=== PATIENT | female | born 1950 ===

== ENCOUNTER 2017-03-20 10:08 | Inpatient (IN) | payer MEDICARE, MEDICAID ==
[2017-03-20 10:19] VITALS: BMI 32.3
[2017-03-20] MEDS ORDERED: Sodium Chloride 0.9% 500 ML IV STA (11:05)
--- NOTE | 2017-03-20 11:21 | RAD ---
HISTORY: pain COMPARISON: No prior. FINDINGS: LUNGS: No active pulmonary disease. Minimal scarring is seen in the left mid lung field. Mild interstitial changes are noted, although a portion of this may be related to the overlying soft tissue and technique. Aorta is normal in size. PLEURA: No significant pleural effusion identified, no pneumothorax apparent. CARDIOVASCULAR: Normal. Heart is unchanged in size. OSSEOUS STRUCTURES: No significant abnormalities. VISUALIZED UPPER ABDOMEN: Normal. OTHER FINDINGS: None. IMPRESSION: No new focal alveolar infiltrate. No CHF.
--- NOTE | 2017-03-20 11:42 | ED PDOC ---
Syncope/Near Syncope/Dizziness Time Seen by Provider: 03/20/17 10:33 Chief Complaint (Nursing): Dizziness/Lightheaded Chief Complaint (Provider): Dizziness History Per: Patient History/Exam Limitations: no limitations Onset/Duration Of Symptoms: Hrs Current Symptoms Are (Timing): Still Present Additional Complaint(s): 66 year old male with a past medical history of hypertension, diabetes and asthma presents to the ED for dizziness which began this morning. The patient states she feels as though the room is spinning. She states that she was asleep and when she woke up she felt dizzy. Patient does note some chest pain, headache and nausea. Denies vomiting, diarrhea. Headache is mild, not worst in his life. No numbness, tingles, neck pain. No fever, cough. PMD: Kerry Max Past Medical History Reviewed: Historical Data, Nursing Documentation, Vital Signs Vital Signs: Last Vital Signs Temp 96.8 F L 03/20/17 10:20 Pulse 70 03/20/17 10:20 Resp 16 03/20/17 10:20 BP 131/62 03/20/17 10:20 Pulse Ox 98 03/20/17 10:41 - Medical History PMH: Asthma, Diabetes, HTN, Hypercholesterolemia - Surgical History Surgical History: Cholecystectomy, Tonsillectomy - Family History Family History: States: Unknown Family Hx - Living Arrangements Living Arrangements: With Family - Social History Current smoker - smoking cessation education provided: No Ex-Smoker (has not smoked in the last 12 months): No Alcohol: None Drugs: Denies - Home Medications Home Medications: Ambulatory Orders Medication Instructions Recorded Nitrofurantoin Macrocrystals 100 mg PO BID #14 cap 12/25/14 [Macrobid] - Allergies Allergies/Adverse Reactions: Allergies Allergy/AdvReac Type Severity Reaction Status Date / Time No Known Allergies Allergy Verified 12/24/14 19:12 Review of Systems ROS Statement: Except As Marked, All Systems Reviewed And Found Negative Cardiovascular: Positive for: Chest Pain Gastrointestinal: Negative for: Vomiting, Diarrhea Neurological: Positive for: Headache, Dizziness Physical Exam - Reviewed Nursing Documentation Reviewed: Yes Vital Signs Reviewed: Yes - Physical Exam Appears: Positive for: Non-toxic, No Acute Distress Head Exam: Positive for: ATRAUMATIC, NORMAL INSPECTION, NORMOCEPHALIC Skin: Positive for: Normal Color, Warm, Dry. Negative for: Rash Eye Exam: Positive for: Normal appearance, EOMI, PERRL. Negative for: Nystagmus ENT: Positive for: Normal ENT Inspection. Negative for: Nasal Congestion, Tonsillar Exudate, Tonsillar Swelling Neck: Positive for: Normal, Painless ROM, Supple Cardiovascular/Chest: Positive for: Regular Rate, Rhythm, Chest Non Tender. Negative for: Tachycardia Respiratory: Positive for: Normal Breath Sounds. Negative for: Wheezing, Respiratory Distress Gastrointestinal/Abdominal: Positive for: Normal Exam, Bowel Sounds, Soft. Negative for: Tenderness, Guarding, Rebound Back: Positive for: Normal Inspection. Negative for: L CVA Tenderness, R CVA Tenderness Extremity: Positive for: Normal ROM. Negative for: Tenderness, Deformity, Swelling Neurologic/Psych: Positive for: Alert, Oriented. Negative for: Gait - Laboratory Results Result Diagrams: 03/20/17 11:10 03/20/17 11:10 Interpretation Of Abn Labs: 12.6 wbc and glucose 225. - ECG ECG: Positive for: Interpreted By Me, Viewed By Me ECG Rhythm: Positive for: Normal QRS, Normal ST Segment, Sinus Rhythm O2 Sat by Pulse Oximetry: 98 (RA) Pulse Ox Interpretation: Normal - Radiology X-Ray: Read By Radiologist X-Ray Interpretation: No Acute Disease - CT Scan/US ct Other Rad Studies (CT/US): Read By Radiologist, Radiology Report Reviewed Other Rad Interpretation: no acute - Progress ED Course And Treament: 1553: Stable. Feels better, no pain. Will need admit for eval of chest pain and dizziness. 1358: Stable. Spoke with Dr. Sen. Will admit tele and gives further orders when pt. reaches floor. AAOx3. Medical Decision Making Medical Decision Makin Initial Impression 66 y/o female presenting with dizziness Initial Plan: * CT head w/o Contrast * EKG * CMP * Troponin * CBC * Partial Thromboplastin * Prothrombin Time * CXR * Antivert 25mg PO * NS 500ml IV 100mls/hr * Reevaluation Documented by Aleja Padilla acting as a scribe for Ricky Reynolds MD. All medical record entries made by the Scribe were at my direction and personally dictated by me. I have reviewed the chart and agree that the record accurately reflects my personal performance of the history, physical exam, medical decision making, and the department course for this patient. I have also personally directed, reviewed, and agree with the discharge instructions and disposition. Disposition - Clinical Impression Clinical Impression: Dizziness, Chest pain, Hyperglycemia - Patient ED Disposition Is Patient to be Admitted: Yes Counseled Patient/Family Regarding: Studies Performed, Diagnosis - Disposition Disposition Time: 13:00 Condition: FAIR - Pt Status Changed To: Hospital Disposition Of: Observation - POA Present On Arrival: Poor Glycemic Control Core Measure Indicators: Chest Pain
[2017-03-20 12:20] LABS: BASO # 0.1 K/uL (0.0-0.2); BASO % 0.5 % (0.0-2.0); EOS # 0.2 K/uL (0.0-0.7); EOS % 1.6 % (0.0-4.0); HEMOGLOBIN 14.2 g/dL (12.0-16.0); LYMPH # 3.3 K/uL (1.0-4.3); LYMPH % 25.9 % (20.0-40.0); MEAN CELL VOLUME 91.4 fl (81.0-99.0); MEAN CORPUSCULAR HEMOGLOBIN 28.9 pg (27.0-31.0); MEAN CORPUSCULAR HGB CONC 31.6 g/dL (33.0-37.0); MEAN PLATELET VOLUME 11.3 fl (7.2-11.7); MONO # 0.6 K/uL (0.0-0.8); MONO % 4.8 % (0.0-10.0); NEUT # 8.5 K/uL (1.8-7.0); NEUT % 67.2 % (50.0-75.0); NRBC % 0.1 % (0.0-0.0); RBC 4.9 Mil/uL (3.80-5.20); RED CELL DISTRIBUTION WIDTH 13.9 % (11.5-14.5); WHITE BLOOD COUNT 12.6 K/uL (4.8-10.8)
[2017-03-20 12:28] LABS: ALBUMIN 4.6 g/dL (3.5-5.0); ALT/SGPT 34 U/L (9-52); AST/SGOT 24 U/L (14-36); BLOOD UREA NITROGEN 16 mg/dl (7-17); CALCIUM 9.9 mg/dL (8.4-10.2); GFR AFRICAN-AMERICAN > 60; GFR NON-AFRICAN AMERICAN > 60
[2017-03-20 12:37] LABS: PROTHROMBIN TIME 10.9 Seconds (9.8-13.1)
[2017-03-20 12:45] LABS: ALB/GLOB RATIO 1.2 (1.0-2.1)
--- NOTE | 2017-03-20 12:50 | CT ---
PROCEDURE: CT HEAD WITHOUT CONTRAST. HISTORY: headache COMPARISON: None available. TECHNIQUE: Axial computed tomography images were obtained through the head/brain without intravenous contrast. Radiation dose: Total exam DLP = 1360 mGy-cm. This CT exam was performed using one or more of the following dose reduction techniques: Automated exposure control, adjustment of the mA and/or kV according to patient size, and/or use of iterative reconstruction technique. FINDINGS: HEMORRHAGE: No intracranial hemorrhage. BRAIN: No mass effect or edema. No significant cerebral cortical atrophy or cortical effacement. There may be some very minimal small vessel changes noted in the white matter tracts. There is calcific atherosclerotic change of the distal intracranial internal carotid arteries. Retro-orbital regions are unremarkable. No tonsillar ectopia is appreciated. Pituitary gland is normal in size. VENTRICLES: Unremarkable. No hydrocephalus. CALVARIUM: Unremarkable. PARANASAL SINUSES: Unremarkable as visualized. No significant inflammatory changes. MASTOID AIR CELLS: Unremarkable as visualized. No inflammatory changes. OTHER FINDINGS: None. IMPRESSION: No evidence of recent infarct or intracranial hemorrhage. Minor age related changes.
--- NOTE | 2017-03-20 17:28 | CP.PCM.CON ---
History of Present Illness - History of Present Illness History of Present Illness: Mrs. Colin is a 66-year-old woman with a past medical history of DM, HTN, HLD, and previous encephalitis (1992, was in ICU for 2 weeks), who states that she developed a feeling of spinning along with nausea when she attempted to stand earlier this morning. She presented to the ED. CT scan of the head did not show any acute findings. She was given Antivert, and now feels like she is back to normal. Review of Systems - Review of Systems All systems: reviewed and no additional remarkable complaints except Past Patient History - Infectious Disease Hx of Infectious Diseases: None - Past Medical History & Family History Past Medical History?: Yes - Past Social History Smoking Status: Never Smoked - CARDIAC Hx Hypercholesterolemia: Yes Hx Hypertension: Yes - PULMONARY Hx Asthma: Yes - NEUROLOGICAL Hx Neurological Disorder: No - HEENT Hx HEENT Problems: No - RENAL Hx Chronic Kidney Disease: No - ENDOCRINE/METABOLIC Hx Diabetes Mellitus Type 2: Yes - HEMATOLOGICAL/ONCOLOGICAL Hx Blood Disorders: No - INTEGUMENTARY Hx Dermatological Problems: No - MUSCULOSKELETAL/RHEUMATOLOGICAL Hx Musculoskeletal Disorders: No Hx Falls: No - GASTROINTESTINAL Hx Gastrointestinal Disorders: No - GENITOURINARY/GYNECOLOGICAL Hx Genitourinary Disorders: No - PSYCHIATRIC Hx Psychophysiologic Disorder: No Hx Substance Use: No - SURGICAL HISTORY Hx Cholecystectomy: Yes Hx Tonsillectomy: Yes - ANESTHESIA Hx Anesthesia: Yes Hx Anesthesia Reactions: No Hx Malignant Hyperthermia: No Has any member of the family had a problem w/ anesthesia?: No Meds Allergies/Adverse Reactions: Allergies Allergy/AdvReac Type Severity Reaction Status Date / Time No Known Allergies Allergy Verified 12/24/14 19:12 Physical Exam - Constitutional Appears: Well - Head Exam Head Exam: ATRAUMATIC, NORMAL INSPECTION, NORMOCEPHALIC - Eye Exam Eye Exam: EOMI, Normal appearance, PERRL - ENT Exam ENT Exam: Mucous Membranes Moist, Normal Exam - Neck Exam Neck exam: Positive for: Normal Inspection - Respiratory Exam Respiratory Exam: Clear to Auscultation Bilateral, NORMAL BREATHING PATTERN - Cardiovascular Exam Cardiovascular Exam: REGULAR RHYTHM - GI/Abdominal Exam GI & Abdominal Exam: Normal Bowel Sounds, Soft. absent: Tenderness - Rectal Exam Rectal Exam: Deferred - Extremities Exam Extremities exam: Positive for: normal inspection - Back Exam Back exam: NORMAL INSPECTION - Neurological Exam Neurological exam: Alert, CN II-XII Intact, Normal Gait, Oriented x3, Reflexes Normal Additional comments: No nystagmus noted on lateral gaze or in the vertical plane. - Psychiatric Exam Psychiatric exam: Normal Affect, Normal Mood Results - Vital Signs Recent Vital Signs: Last Vital Signs Temp 98.5 F 03/20/17 16:54 Pulse 76 03/20/17 16:54 Resp 18 03/20/17 17:06 BP 122/70 03/20/17 16:54 Pulse Ox 98 03/20/17 16:54 - Labs Result Diagrams: 03/20/17 11:10 03/20/17 11:10 Labs: Laboratory Results - last 24 hr 03/20/17 03/20/17 03/20/17 10:40 11:10 11:10 WBC 12.6 H RBC 4.90 Hgb 14.2 Hct 44.7 MCV 91.4 MCH 28.9 MCHC 31.6 L RDW 13.9 Plt Count 176 MPV 11.3 Neut % (Auto) 67.2 Lymph % (Auto) 25.9 [place] % (Auto) 4.8 Eos % (Auto) 1.6 Baso % (Auto) 0.5 Neut # 8.5 H Lymph # 3.3 [place] # 0.6 Eos # 0.2 Baso # 0.1 PT INR APTT Sodium 143 Potassium 4.4 Chloride 105 Carbon Dioxide 25 Anion Gap 17 BUN 16 Creatinine 0.7 Est GFR ( Amer) > 60 Est GFR (Non-Af Amer) > 60 POC Glucose (mg/dL) 209 H Random Glucose 225 H Calcium 9.9 Total Bilirubin 0.4 AST 24 ALT 34 Alkaline Phosphatase 123 Troponin I < 0.0120 Total Protein 8.4 H Albumin 4.6 Globulin 3.8 Albumin/Globulin Ratio 1.2 03/20/17 03/20/17 11:10 16:17 WBC RBC Hgb Hct MCV MCH MCHC RDW Plt Count MPV Neut % (Auto) Lymph % (Auto) [place] % (Auto) Eos % (Auto) Baso % (Auto) Neut # Lymph # [place] # Eos # Baso # PT 10.9 INR 1.0 APTT 29.0 Sodium Potassium Chloride Carbon Dioxide Anion Gap BUN Creatinine Est GFR ( Amer) Est GFR (Non-Af Amer) POC Glucose (mg/dL) 123 H Random Glucose Calcium Total Bilirubin AST ALT Alkaline Phosphatase Troponin I Total Protein Albumin Globulin Albumin/Globulin Ratio Assessment & Plan (1) Vertigo Assessment and Plan: Considering the patient's history, it may be related to either benign positional vertigo, or could be due to vertebrobasilar insufficiency. Currently , she is back to baseline after Antivert and fluids. However, I recommend the followin. Telemetry 2. Echocardiogram with bubble study 3. CTA of the head/neck 4. Continue antiplatelet therapy and statin. 5. Fluids with NS at 100 mL/hr 6. PT/OT eval Thank you. Status: Acute Priority: High
[2017-03-20] MEDS ORDERED: INSULIN LISPRO 10 UNIT SQ SCH (20:45)
[2017-03-20] MEDS ORDERED: INSULIN LISPRO 30 UNIT SQ SCH (20:45)
[2017-03-20] MEDS: Insulin Detemir 100 Units/ml Inj SC SCH (23:43)
[2017-03-20] MEDS: Insulin Regular 100 units/ml SC SCH (23:48)
--- NOTE | 2017-03-21 05:48 | CON ---
DATE: CARDIOLOGY CONSULTATION REASON FOR CONSULTATION: Dizziness. HISTORY OF PRESENT ILLNESS: The history obtained by training technician. The patient is 66-year-old, morbidly obese, female, who has a history of hypertension, hyperlipidemia, diabetes mellitus and was told that she has tachycardia by her binder coverstitch. The patient does not recall the binder coverstitch's name; however, she was not given any medication for this and she states she underwent cardiac catheterization some 3 years ago and it was normal. The patient did experience nausea in this morning, but denies any vomiting. The patient denies any syncope or fall. The patient does use a walker and goes out with the guidance of one of her family members. The patient does experience palpitation and dizziness while she is in bed. At this time, the patient denies any retrosternal chest pain or shortness of breath. She does report bilateral leg swelling. PAST MEDICAL HISTORY: Hypertension, diabetes mellitus, hyperlipidemia, tachycardia. The patient denies any history of DVT. HOME MEDICATIONS: Macrobid 100 mg twice a day, Protonix 20 mg one a day, Neurontin 100 mg once a day, amlodipine 5 mg once a day, Lopressor 50 mg twice a day, Humalog insulin and Nitrostat p.r.n. REVIEW OF SYSTEMS: The patient experienced nausea in this morning, no vomiting, no retrosternal chest pain, no syncope, no fever or chills, no productive cough. PHYSICAL EXAMINATION: GENERAL: The patient is an elderly female, who does not appears to be in any distress. VITAL SIGNS: Blood pressure 122/70, heart rate 76, temperature 98.5, respirations 20. HEENT: Normocephalic. NECK: No JVD. CHEST: Clear. HEART: S1 and S2 regular. ABDOMEN: Soft. EXTREMITIES: Trace to 1+ right leg edema. No calf tenderness. EKG: Reveals sinus rhythm at rate 71. Head CT scan without contrast, no acute intracranial abnormality. Chest x-ray normal cardiac size with prominent bronchovascular markings. LABORATORY DATA: Hemoglobin and hematocrit 14.1 and 44.7, white count 12.6, platelet count 176,000. Today's SMA-7 is within normal limits except for glucose 525. One set troponin is negative. PT, PTT and INR are within normal limits. ASSESSMENT: 1. Dizziness and palpitation rule out paroxysmal atrial fibrillation or paroxysmal supraventricular tachycardia. 2. Hypertension. 3. Diabetes mellitus. 4. Hyperlipidemia. 5. Rule out transient ischemic attach. RECOMMENDATION: Resume the patient's home medications include Lopressor 50 mg twice a day and is continue aspirin 81 mg once a day. Continue telemetry monitoring. I would request an echocardiogram and obtain TSH level and start prophylactic subcutaneous Lovenox at 40 mg daily. Salvador Agee MD
[2017-03-21] MEDS: Insulin Regular 100 units/ml SC SCH ×4 (06:42→22:06)
[2017-03-21] MEDS: Pantoprazole 40 mg EC Tab PO SCH (08:30)
[2017-03-21] MEDS: Enoxaparin 40 mg Syringe SC SCH (08:31)
[2017-03-21] MEDS: Insulin Lispro (humaLOG) 100 Units/ml Inj SC SCH ×3 (08:41→16:25)
--- NOTE | 2017-03-21 11:54 | CARD ---
APPROVED REPORT EKG Measurement Heart [id number] <Conclusion> Normal sinus rhythm Normal ECG
[2017-03-21] MEDS ORDERED: Iodixanol 320 MG/ML 100 ML BOTTLE IV ONE (13:38)
[2017-03-21] MEDS ORDERED: Sodium Chloride 0.9% 50 ML IV ONE (13:39)
--- NOTE | 2017-03-21 14:48 | HP ---
CHIEF COMPLAINT: Dizziness. HISTORY OF PRESENT ILLNESS: This is a 66-year-old female, known case of diabetes, hypertension, elevated cholesterol, bronchial asthma, who was having dizziness and lightheadedness. The patient was brought to the emergency room and was admitted for further management. REVIEW OF SYSTEMS: Positive for lightheadedness, dizziness, and weakness. Review of systems otherwise is negative for headache, syncope, loss of consciousness, chest pain, shortness of breath, nausea, vomiting, diarrhea, constipation, anemia, joint or extremity pain. Review of systems of all other organ system is unremarkable. PAST MEDICAL HISTORY: Significant for asthma, diabetes, hypertension, and elevated cholesterol. PAST SURGICAL HISTORY: Remarkable for cholecystectomy, tonsillectomy. PERSONAL HISTORY: The patient is currently nonsmoker, nondrinker. No substance abuse. MEDICATIONS: The patient is on multiple medications, which is as per reconciliation sheet, which was reviewed and ordered. ALLERGIES: THE PATIENT IS NOT ALLERGIC TO ANY MEDICATION. FAMILY HISTORY: Noncontributory. PHYSICAL EXAMINATION: GENERAL: Well-built, well-nourished, overweight 66-year-old female, in no acute distress. VITAL SIGNS: Temperature 97.6, pulse 63, respirations 18, blood pressure 113/62. HEENT: Pupils reacting to light. HEART: S1 and S2, normal and regular. LUNGS: Good bilateral air exchange. ABDOMEN: Soft, nontender. EXTREMITIES: No edema. No calf swelling. No tenderness. No acute ischemia. CENTRAL NERVOUS SYSTEM: Essentially unchanged. There is no sign of any acute gross focal motor or sensory neurological deficits. The patient also does not have any orthostatic changes. DIAGNOSTIC DATA: Available diagnostic data reviewed. Accu-Cheks remains elevated. WBC 12.6, hemoglobin 14.2, hematocrit 44.7, platelets 176. Sodium 143, potassium 4.4, chloride 105, bicarb 25, BUN 16, creatinine 0.7. SMA-12 is unremarkable. EKG does not reveal acute ST-T changes. CAT scan is unremarkable. Chest x-ray is clear. ADMITTING IMPRESSION: Near-syncope, dizziness, type 2 diabetes with hyperglycemia, hypertension, elevated cholesterol, and bronchial asthma. Cardiology and Neurology consults and intervention noted and appreciated. PLAN: As ordered. Zachery Sen MD [facility] # [id number]
--- NOTE | 2017-03-21 16:15 | CT ---
PROCEDURE: CT Angiography of the head and neck with contrast HISTORY: vertigo, rule out VBI COMPARISON: Noncontrast CT head same day TECHNIQUE: Contiguous axial images of the neck and head were obtained from the level of the superior mediastinum to the top of the skull in the arteriographic phase of enhancement. Coronal and sagittal reformats or also generated. 3D MIP imaging was also obtained. IV contrast dose: 100 milliliters visi opaque Radiation Dose - DLP: 2220 mGy-cm This CT exam was performed using one or more of the following dose reduction techniques: Automated exposure control, adjustment of the mA and/or kV according to patient size, and/or use of iterative reconstruction technique. FINDINGS: RIGHT CAROTID ARTERIES: Common Carotid Artery: Artifact from the injection limits evaluation of the proximal margin of the right common carotid artery although it appears grossly patent. Carotid Bifurcation: Mild atherosclerotic plaque without significant luminal narrowing. Internal Carotid Artery:Very mild atherosclerotic plaque without significant luminal narrowing of the proximal ICA. There is a less than 10 percent luminal narrowing by NASCET criteria External Carotid Artery (proximal branches): Unremarkable LEFT CAROTID ARTERIES: Common Carotid Artery: Mild atherosclerotic change of the proximal left common carotid artery. The remainder of the left common carotid artery is patent. Carotid Bifurcation: Moderate atherosclerotic change Internal Carotid Artery:There is also moderate atherosclerotic calcification in the region of the proximal left internal carotid artery. Utilizing 3 image planes there appears to be 40-50 percent luminal narrowing of the proximal left ICA and probably 50 percent by NASCET criteria. External Carotid Artery (proximal branches): Normal. VERTEBRAL ARTERIES: Right Vertebral Artery: There is no significant focal atherosclerotic narrowing of the proximal right vertebral artery. Motion artifact and shoulder artifact limit evaluation of the proximal to mid right vertebral artery although it appears grossly patent. No focal thrombus or significant atherosclerotic narrowing is seen in the V1 through V3 segments. There appears to be moderate atherosclerotic change of the V4 segment of the right vertebral artery although patent. There is also some atherosclerotic change of some of the right vertebral artery branches in this region. Left Vertebral Artery: Left vertebral artery is patent at its origin and also within the cervical region. There is additionally mild to moderate atherosclerotic change of the V4 segment of the left vertebral artery although once again patent. OTHER FINDINGS: No abnormal extrinsic compression upon the carotid vasculature is noted. Mild scattered shotty lymph nodes are seen throughout the neck. Visualized glottis and pharynx are unremarkable. Visualized posterior nasopharynx and oral pharynx are unremarkable. Aorta shows mild atherosclerotic change without intimal flap. Superior mediastinum and thoracic inlet are unremarkable including the thyroid gland. There is mild nonspecific non geographic mosaic pattern of the lung apices without appreciable nodule. Degenerative changes are seen in the cervical spine disc osteophyte complex seen at the C4-5 disc space level possibly causing some mild abutment upon the cord and causing a mild amount of acquired central stenosis. Smaller amount of disc osteophyte complexes seen at C5-6. CT angiography images of the brain reveal patent basilar artery as well as the proximal posterior cerebral arteries. There is very mild atherosclerotic change of the internal carotid arteries distal to the bifurcation region. Intracranial internal carotid arteries are noted to have moderate bilateral atherosclerotic calcification in the cavernous regions and proximal bifurcation region. These however appear grossly patent. Middle cerebral arteries and anterior cerebral arteries are patent. No obvious aneurysm or enhancing lesion is seen. No cortical effacement is seen in the brain. Retro-orbital regions are unremarkable. Mild mucosal changes are seen in the sinuses. IMPRESSION: No evidence of intracranial arterial thrombus. Moderate left carotid bulb and proximal ICA stenosis measuring at least 50 percent by NASCET criteria. Moderate atherosclerotic changes of the distal vertebral arteries and distal intracranial internal carotid arteries. MRA may prove helpful for further evaluation. No appreciable aneurysm. Dr. Alvarado Flores was notified of the findings. .
--- NOTE | 2017-03-21 20:13 | PN ---
DATE: SUBJECTIVE: The patient denies any dizziness or chest pain at this time. The patient's daughter at the bedside who gave me more information about the patient. The patient is being followed by Dr. Gely Valentien in his office. The patient underwent cardiac catheterization a few years ago which was unremarkable according to the daughter and she had nuclear stress test last year which was normal. The patient does use a quad walker when she walks, she did have back surgery twice in the lower back, the most recent one was 5 years ago but had no problem ambulating after that. PHYSICAL EXAMINATION: VITAL SIGNS: Blood pressure 110/69, heart rate 61, temperature 98.1, respirations 18. HEENT: Normocephalic. CHEST: Clear. HEART: S1 and S2, regular. EXTREMITIES: Trace leg edema. LABORATORY DATA: Today's blood sugar is . Three sets of troponins are negative. TSH level is within normal limit. Head and neck CT angio were performed but no report yet. ASSESSMENT: 1. Dizziness. 2. History of tachycardia, which could not be further defined by the patient or her daughter. 3. Uncontrolled diabetes mellitus. 4. Hypertension. 5. History of lower back surgery twice in the past. RECOMMENDATIONS: Continue aspirin 81 mg once a day, Lopressor 25 mg twice a day, Lovenox at 40 mg once a day, Norvasc at 5 mg once a day. I will follow the CT angio report and the patient is scheduled for an echocardiographic study tomorrow. Consider x-ray of the thoracolumbar spine. Salvador Agee MD
[2017-03-21] MEDS: Insulin Detemir 100 Units/ml Inj SC SCH (22:07)
[2017-03-22 05:58] LABS: ALB/GLOB RATIO 1.1 (1.0-2.1); ALBUMIN 3.8 g/dL (3.5-5.0); ALT/SGPT 29 U/L (9-52); AST/SGOT 14 U/L (14-36); BLOOD UREA NITROGEN 19 mg/dl (7-17); CALCIUM 9.5 mg/dL (8.4-10.2); GFR AFRICAN-AMERICAN > 60; GFR NON-AFRICAN AMERICAN > 60
[2017-03-22 06:10] LABS: MEAN CELL VOLUME 89.6 fl (81.0-99.0); MEAN CORPUSCULAR HEMOGLOBIN 29.3 pg (27.0-31.0); MEAN CORPUSCULAR HGB CONC 32.7 g/dL (33.0-37.0); RBC 4.43 Mil/uL (3.80-5.20); RED CELL DISTRIBUTION WIDTH 13.9 % (11.5-14.5); WHITE BLOOD COUNT 11.7 K/uL (4.8-10.8)
[2017-03-22] MEDS: Insulin Regular 100 units/ml SC SCH ×4 (06:40→21:07)
[2017-03-22] MEDS: Enoxaparin 40 mg Syringe SC SCH (08:50)
[2017-03-22] MEDS: Insulin Lispro (humaLOG) 100 Units/ml Inj SC SCH ×3 (08:52→16:59)
[2017-03-22] MEDS: Pantoprazole 40 mg EC Tab PO SCH (08:52)
--- NOTE | 2017-03-22 10:48 | PQF GENQUE ---
Dr. Sen, 2 queries to follow: 1. Please clarify type of asthma: if known: i.e. Mild intermittent Mild persistent Moderate persistent Severe persistent With bronchitis(please clarify acuity of bronchitis) With chronic lung disease (please document specific chronic lung disease) Other (please specify) Clinically unable to determine Unknown 2. Please clarify acuity of asthma: Uncomplicated With exacerbation(acute) With status asthmaticus Other (please specify) Clinically unable to determine Unknown ER note: Respiratory: Positive for: Normal Breath Sounds. Negative for: Wheezing , Respiratory Distress H and P: LUNGS: Good bilateral air exchange; Impression includes: Bronchial Asthma This form is a permanent part of the medical record Clarification of your documentation is requested to better reflect the severity of illness and intensity of treatment of your patient. Indicators present [] Specify: [] [] Specify: [] [] Specify: [] [] Specify: [] Location in the medical record that reflects the above clinical findings: [] Treatment Provided: [] PHYSICIAN'S RESPONSE Based on your medical judgment of the clinical indicators outlined above please clarify the following: [] Practitioner response [] If unable to determine, please check the box, sign and date. Present On Admission (POA) Indicator: [] Present at the time of admission [] Not present at the time of admission [] Clinically Undetermined In responding to this query, please exercise your independent professional judgment. The fact that a question is asked does not imply that any particular answer is desired or expected. Thank you for your clarification on this documentation. If you have any questions please call. * Thank you, Clarissa Tran RN ext. #[phone] MTDD
--- NOTE | 2017-03-22 11:09 | CP.PCM.PN ---
Subjective - Date & Time of Evaluation Date of Evaluation: 03/22/17 Time of Evaluation: 11:07 - Subjective Subjective: Ms. Colin was seen and examined at the bedside. She is alert, oriented, speaks mainly [place]serr[place]ian. She denies any dizziness, blurred vision, headache, lightheadedness, nausea, or vomiting. She further states of feeling better in comparison since admission. She was able to follow simple commands and answer questions appropriately. CTA of the head and neck showed moderate left carotid bulb and provimal ICA stenosis measuring at least 50 % by NASCET criteria. There is also moderate atherosclerosis changes of the distal vertebral arteries and distal intracranial internal carotid arteries. There was no untoward events overnight. Objective - Vital Signs/Intake and Output Vital Signs (last 24 hours): Temp Pulse Resp BP Pulse Ox 97.7 F 82 18 126/75 95 03/22/17 07:55 03/22/17 09:00 03/22/17 07:55 03/22/17 08:51 03/22/17 07:55 - Medications Medications: Current Medications Amlodipine Besylate (Norvasc) 5 mg PO DAILY [facility] Last Admin: 03/22/17 08:51 Dose: 5 mg Aspirin (Aspirin Chewable) 81 mg PO DAILY [facility] Last Admin: 03/22/17 08:50 Dose: 81 mg Enoxaparin Sodium (Lovenox) 40 mg SC DAILY [facility] PRN Reason: Protocol Last Admin: 03/22/17 08:50 Dose: 40 mg Gabapentin (Neurontin) 100 mg PO BID [facility] Last Admin: 03/22/17 08:50 Dose: 100 mg Insulin Detemir (Levemir) 50 units SC HS [facility] Last Admin: 03/21/17 22:07 Dose: 50 units Insulin Human Lispro (Humalog) 30 units SC ACB [facility] Last Admin: 03/22/17 08:52 Dose: 30 units Insulin Human Lispro (Humalog) 30 units SC ACL [facility] Last Admin: 03/21/17 14:26 Dose: 30 units Insulin Human Lispro (Humalog) 10 units SC ACD [facility] Last Admin: 03/21/17 16:25 Dose: 10 units Insulin Human Regular (Humulin R) 0 units SC Q6 [facility] PRN Reason: Protocol Last Admin: 03/22/17 06:40 Dose: 3 units Metoprolol Tartrate (Lopressor) 25 mg PO Q12 [facility] Last Admin: 03/22/17 08:51 Dose: 25 mg Montelukast Sodium (Singulair) 5 mg PO DAILY [facility] Last Admin: 03/22/17 08:52 Dose: 5 mg Nitroglycerin (Nitrostat Sl Tab) 0.4 mg SL Q5M PRN PRN Reason: Pain, Mild (1-3) Pantoprazole Sodium (Protonix Ec Tab) 40 mg PO DAILY [facility] Last Admin: 03/22/17 08:52 Dose: 40 mg Trazodone HCl (Desyrel) 50 mg PO HS [facility] Last Admin: 03/21/17 22:07 Dose: 50 mg - Labs Labs: 03/22/17 04:25 03/22/17 04:25 PT 10.9 Seconds (9.8-13.1) 03/20/17 11:10 INR 1.0 (0.9-1.2) 03/20/17 11:10 APTT 29.0 Seconds (25.6-37.1) 03/20/17 11:10 - Constitutional Appears: No Acute Distress - Head Exam Head Exam: NORMAL INSPECTION - Neurological Exam Neurological Exam: Alert, Awake, CN II-XII Intact, Oriented x3 Neuro motor strength exam: Left Upper Extremity: 4, Right Upper Extremity: 4, Left Lower Extremity: 4, Right Lower Extremity: 4 Additional comments: Alert, CN II-XII Intact, Normal Gait, Oriented x3, Reflexes Normal Assessment and Plan (1) Vertigo Assessment & Plan: Case discussed with Dr. Flores, continue all current medical regimen. Recommend PT/OT eval and treat. Follow up MRA of the head and neck, echocardiogram with bubble study. Status: Acute
[2017-03-22 11:41] LABS: HDL CHOLESTEROL 39 MG/DL (30-70)
[2017-03-22 11:52] LABS: LDL CHOLESTEROL 83 mg/dL (0-129)
--- NOTE | 2017-03-22 17:05 | CP.PCM.PN ---
Subjective - Subjective Subjective: feeling better today, no CP or dizziness Objective - Vital Signs/Intake and Output Vital Signs (last 24 hours): Temp Pulse Resp BP Pulse Ox 98.7 F 72 20 138/73 96 03/22/17 15:42 03/22/17 15:42 03/22/17 15:42 03/22/17 15:42 03/22/17 15:42 - Medications Medications: Current Medications Amlodipine Besylate (Norvasc) 5 mg PO DAILY [facility] Last Admin: 03/22/17 08:51 Dose: 5 mg Aspirin (Aspirin Chewable) 81 mg PO DAILY [facility] Last Admin: 03/22/17 08:50 Dose: 81 mg Enoxaparin Sodium (Lovenox) 40 mg SC DAILY [facility] PRN Reason: Protocol Last Admin: 03/22/17 08:50 Dose: 40 mg Gabapentin (Neurontin) 100 mg PO BID [facility] Last Admin: 03/22/17 08:50 Dose: 100 mg Insulin Detemir (Levemir) 50 units SC HS [facility] Last Admin: 03/21/17 22:07 Dose: 50 units Insulin Human Lispro (Humalog) 30 units SC ACB [facility] Last Admin: 03/22/17 08:52 Dose: 30 units Insulin Human Lispro (Humalog) 30 units SC ACL [facility] Last Admin: 03/22/17 12:21 Dose: 30 units Insulin Human Lispro (Humalog) 10 units SC ACD [facility] Last Admin: 03/21/17 16:25 Dose: 10 units Insulin Human Regular (Humulin R) 0 units SC Q6 [facility] PRN Reason: Protocol Last Admin: 03/22/17 12:21 Dose: 3 units Metoprolol Tartrate (Lopressor) 25 mg PO Q12 [facility] Last Admin: 03/22/17 08:51 Dose: 25 mg Montelukast Sodium (Singulair) 5 mg PO DAILY [facility] Last Admin: 03/22/17 08:52 Dose: 5 mg Nitroglycerin (Nitrostat Sl Tab) 0.4 mg SL Q5M PRN PRN Reason: Pain, Mild (1-3) Pantoprazole Sodium (Protonix Ec Tab) 40 mg PO DAILY [facility] Last Admin: 03/22/17 08:52 Dose: 40 mg Trazodone HCl (Desyrel) 50 mg PO HS [facility] Last Admin: 03/21/17 22:07 Dose: 50 mg - Labs Labs: 03/22/17 04:25 03/22/17 04:25 PT 10.9 Seconds (9.8-13.1) 03/20/17 11:10 INR 1.0 (0.9-1.2) 03/20/17 11:10 APTT 29.0 Seconds (25.6-37.1) 03/20/17 11:10 - Constitutional Appears: Well, Non-toxic, No Acute Distress - Head Exam Head Exam: ATRAUMATIC, NORMAL INSPECTION - Eye Exam Eye Exam: EOMI, Normal appearance - ENT Exam ENT Exam: Mucous Membranes Moist - Neck Exam Neck Exam: Full ROM, Normal Inspection - Respiratory Exam Respiratory Exam: Clear to Ausculation Bilateral, NORMAL BREATHING PATTERN - Cardiovascular Exam Cardiovascular Exam: REGULAR RHYTHM, +S1, +S2 - GI/Abdominal Exam GI & Abdominal Exam: Soft, Normal Bowel Sounds - Back Exam Back Exam: Full ROM, NORMAL INSPECTION - Neurological Exam Neurological Exam: Alert, Awake, Normal Gait, Oriented x3 - Psychiatric Exam Psychiatric exam: Normal Affect, Normal Mood - Skin Skin Exam: Normal Color, Warm Assessment and Plan - Assessment and Plan (Free Text) Assessment: 1, T2DM -poorly controlled, A1c9.8, continue with current management, consult appreciated 2, Chest pain -on asa, statin, EKG and Trop were negative, cardiology consult appreciated, ECHO pending 3, HTN -chronic, controlled on current meds continue current management, PT, DVT PPX, above d/w dr samuel
--- NOTE | 2017-03-22 17:20 | CARD ---
APPROVED REPORT EXAM: Two-dimensional and M-mode echocardiogram with Doppler and color Doppler. Other Information Quality : FairRhythm : INDICATION Dizziness and Vertigo 2D DIMENSIONS IVSd0.92 (0.7-1.1cm)LVDd4.31 (3.9-5.9cm) LVOT Diameter2.00 (1.8-2.4cm)PWd1.07 (0.7-1.1cm) IVSs2.00 (0.8-1.2cm)LVDs2.21 (2.5-4.0cm) FS (%) 48.7 %PWs1.46 (0.8-1.2cm) LVEF (%)80.0 (>50%) M-Mode DIMENSIONS Left Atrium (MM)3.44 (2.5-4.0cm)Aortic Root2.64 (2.2-3.7cm) Aortic Cusp Exc.1.44 (1.5-2.0cm) Mitral Valve MV E Ackjxyvm73.5cm/sMV DECEL [id number] A Zysjoaaa946.3cm/s MV PUC04tpS/A ratio0.7MVA (PHT)2.86cm2 TDI Lateral E' Peak V5.62cm/sE/Lateral E'16.3E/Medial E'0.0 LEFT VENTRICLE The left ventricle is normal in size. There is normal left ventricular wall thickness. The left ventricular function is normal. The left ventricular ejection fraction is - 70%. There is normal LV segmental wall motion. Transmitral Doppler flow pattern is Grade I-abnormal relaxation pattern. No left ventricle thrombus noted on this study. There is no ventricular septal defect visualized. There is no left ventricular aneurysm. There is no mass noted in the left ventricle. RIGHT VENTRICLE The right ventricle is normal size. There is normal right ventricular wall thickness. The right ventricular systolic function is normal. ATRIA The left atrium size is normal. There is no thrombus suspected in the left atrium. The right atrium size is normal. The interatrial septum is intact with no evidence for an atrial septal defect. AORTIC VALVE The aortic valve is normal in structure. No aortic regurgitation is present. There is no aortic valvular stenosis. MITRAL VALVE The mitral valve is normal in structure. There is no evidence of mitral valve prolapse. There is no mitral valve stenosis. There is no mitral valve regurgitation noted. TRICUSPID VALVE The tricuspid valve is normal in structure. There is no tricuspid valve regurgitation noted. There is no tricuspid valve prolapse or vegetation. There is no tricuspid valve stenosis. PULMONIC VALVE The pulmonic valve is not well visualized. There is no pulmonic valvular regurgitation. GREAT VESSELS The aortic root is normal in size. The IVC is normal in size and collapses >50% with inspiration. PERICARDIAL EFFUSION The pericardium appears normal. There is no pleural effusion. <Conclusion> The study is of fair quality. The left ventricle is normal in size and wall thickness. The left ventricular function is normal. The left ventricular ejection fraction is - 70%. The left atrium, right ventricle and right atrium are normal in size. The mitral, aortic and tricuspid valves are normal.
[2017-03-22] MEDS: Insulin Detemir 100 Units/ml Inj SC SCH (21:04)
--- NOTE | 2017-03-22 21:47 | PN ---
DATE: SUBJECTIVE: Patient denies any dizziness or palpitation. No chest pain. She underwent echocardiographic study today. PHYSICAL EXAMINATION: VITAL SIGNS: Blood pressure 137/73, heart rate 72, temperature 98.7, respirations 20. HEENT: Normocephalic. CHEST: Clear. HEART: S1, S2 regular. ABDOMEN: Soft. EXTREMITIES: Trace edema. LABORATORY DATA: Today's blood sugars are 258, 218, and 235. Triglycerides were 202, the rest of lipid profile is within normal limit. Today's hemoglobin and hematocrit were within normal limits. White count slightly elevated at 11.7, platelet count is 151,000. A CT angio of the head and neck revealed no evidence of intracranial arterial thrombus. Moderately sclerotic bulb and proximal internal carotid artery stenosis, measuring at least 50%. MR view was recommended and was performed, but the report is still pending. ASSESSMENT: 1. Recurrent dizziness. 2. History of unknown tachycardia. 3. Obesity. 4. Uncontrolled diabetes mellitus. 5. Hypertension and mild hyperlipidemia. RECOMMENDATIONS: I did review the echocardiographic study that was performed today; unofficial report stated that ejection fraction 70% and mitral, aortic, and tricuspid valves are normal. Continue current medical management including aspirin 81 mg once a day, Humalog insulin, Levemir, Lopressor 25 mg twice a day, Protonix 40 mg once a day, Norvasc 5 mg once a day. I will follow the neck MRA. Salvador Agee MD
[2017-03-23] MEDS: Insulin Regular 100 units/ml SC SCH (06:08)
[2017-03-23] MEDS: Enoxaparin 40 mg Syringe SC SCH (08:49)
[2017-03-23] MEDS: Pantoprazole 40 mg EC Tab PO SCH (08:49)
[2017-03-23] MEDS: Insulin Lispro (humaLOG) 100 Units/ml Inj SC SCH ×6 (08:51→21:41)
--- NOTE | 2017-03-23 09:06 | CP.PCM.PN ---
Subjective - Date & Time of Evaluation Date of Evaluation: 03/23/17 Time of Evaluation: 07:00 - Subjective Subjective: Patient seen and examined at bedside with attending-Dr. Sen, telemetry reviewed. Alert, awake, reports she has increased right knee pain and she is supposed to go for right knee replacement once her diabetes is under control. Denies SOB, weakness or dizziness. Chest pain has improved. Objective - Vital Signs/Intake and Output Vital Signs (last 24 hours): Temp Pulse Resp BP Pulse Ox 97.9 F 68 20 145/72 95 03/23/17 08:04 03/23/17 08:04 03/23/17 08:04 03/23/17 08:04 03/23/17 08:04 - Medications Medications: Current Medications Amlodipine Besylate (Norvasc) 5 mg PO DAILY [facility] Last Admin: 03/22/17 08:51 Dose: 5 mg Aspirin (Aspirin Chewable) 81 mg PO DAILY [facility] Last Admin: 03/22/17 08:50 Dose: 81 mg Enoxaparin Sodium (Lovenox) 40 mg SC DAILY [facility] PRN Reason: Protocol Last Admin: 03/22/17 08:50 Dose: 40 mg Gabapentin (Neurontin) 100 mg PO BID [facility] Last Admin: 03/22/17 18:01 Dose: 100 mg Insulin Detemir (Levemir) 50 units SC HS [facility] Last Admin: 03/22/17 21:04 Dose: 50 units Insulin Human Lispro (Humalog) 30 units SC ACB [facility] Last Admin: 03/22/17 08:52 Dose: 30 units Insulin Human Lispro (Humalog) 30 units SC ACL [facility] Last Admin: 03/22/17 12:21 Dose: 30 units Insulin Human Lispro (Humalog) 10 units SC ACD [facility] Last Admin: 03/22/17 16:59 Dose: Not Given Insulin Human Regular (Humulin R) 0 units SC Q6 [facility] PRN Reason: Protocol Last Admin: 03/23/17 06:08 Dose: Not Given Metoprolol Tartrate (Lopressor) 25 mg PO Q12 [facility] Last Admin: 03/22/17 21:05 Dose: 25 mg Montelukast Sodium (Singulair) 5 mg PO DAILY [facility] Last Admin: 03/22/17 08:52 Dose: 5 mg Nitroglycerin (Nitrostat Sl Tab) 0.4 mg SL Q5M PRN PRN Reason: Pain, Mild (1-3) Pantoprazole Sodium (Protonix Ec Tab) 40 mg PO DAILY [facility] Last Admin: 03/22/17 08:52 Dose: 40 mg Trazodone HCl (Desyrel) 50 mg PO HS [facility] Last Admin: 03/22/17 21:04 Dose: 50 mg - Labs Labs: 03/22/17 04:25 03/22/17 04:25 PT 10.9 Seconds (9.8-13.1) 03/20/17 11:10 INR 1.0 (0.9-1.2) 03/20/17 11:10 APTT 29.0 Seconds (25.6-37.1) 03/20/17 11:10 - Constitutional Appears: No Acute Distress (obese) - Head Exam Head Exam: ATRAUMATIC, NORMOCEPHALIC - Eye Exam Eye Exam: EOMI - ENT Exam ENT Exam: Mucous Membranes Moist - Neck Exam Neck Exam: Full ROM - Respiratory Exam Respiratory Exam: Clear to Ausculation Bilateral, NORMAL BREATHING PATTERN - Cardiovascular Exam Cardiovascular Exam: REGULAR RHYTHM, +S1, +S2 - GI/Abdominal Exam GI & Abdominal Exam: Soft (obese), Normal Bowel Sounds - Extremities Exam Extremities Exam: Full ROM - Neurological Exam Neurological Exam: Alert, Awake, CN II-XII Intact - Psychiatric Exam Psychiatric exam: Normal Affect, Normal Mood - Skin Skin Exam: Dry, Normal Color, Warm Assessment and Plan - Assessment and Plan (Free Text) Assessment: 1. Chest pain and dizziness -acute, improved -cardiology consult appreciated, will follow recommendations -neurology consult appreciated, will follow recommendations: follow up Echo with bubble study -continue with current management, PT/OT 2. Diabetes Mellitus Type 2 -chronic, uncontrolled -continue with current medication regimen -Endocrinology consult appreciated, will follow recommendations 3. Hypertension -chronic, controlled -continue current management 4. Mild Intermittent Asthma -chronic, controlled -continue current management 5. DVT prophylaxis -Lovenox 40mg SC QD
--- NOTE | 2017-03-23 10:56 | MRI ---
PROCEDURE: Magnetic Resonance Angiography Brain HISTORY: Intracranial atherosclerotic disease COMPARISON: None available. TECHNIQUE: 3D time of flight MR angiography of the intracranial arteries was performed. Rotating maximum intensity projection images were generated. FINDINGS: INTERNAL CAROTID ARTERIES: Normal in caliber and widely patent. The skull base, petrous, cavernous and supraclinoid segments are bilaterally widely patient. ANTERIOR CEREBRAL ARTERIES: Normal in caliber and widely patent. A1 and A2 segments are widely patent. Smaller distal branches unremarkable, as visualized. MIDDLE CEREBRAL ARTERIES: Normal in caliber and widely patent. M1 and M2 segments are widely patent. Perisylvian branches grossly symmetric. POSTERIOR CIRCULATION: Basilar Artery: Normal in caliber and widely patent. Distal Vertebral Arteries: Normal in caliber and widely patent. Posterior Cerebral Arteries: Normal in caliber and widely patent. Posterior Inferior Cerebellar Arteries: Normal in caliber and widely patent. ANEURYSM/ VASCULAR MALFORMATIONS: None. OTHER FINDINGS: None. IMPRESSION: Normal MR angiography of the brain. A preliminary report was provided by [employer] services.
--- NOTE | 2017-03-23 10:57 | MRI ---
PROCEDURE: MR Angiography of the neck without contrast HISTORY: Carotid plaque evaluation COMPARISON: None available. TECHNIQUE: 3D [id number] angiography of the neck was performed. Rotating maximum intensity projection images of the cervical carotid and vertebral arteries were generated. The origins of the common carotid arteries were not visualized, which is a limitation inherent to the non-contrast time of flight technique. FINDINGS: RIGHT CAROTID ARTERIES: Common Carotid Artery: Normal. Carotid Bifurcation: Normal. Internal Carotid Artery:Normal. External Carotid Artery (proximal branches): Normal. LEFT CAROTID ARTERIES: Common Carotid Artery: Normal. Carotid Bifurcation: Normal. Internal Carotid Artery:Eccentric plaque at the origin of the internal carotid artery without evidence of hemodynamically significant stenosis. External Carotid Artery (proximal branches): Normal. VERTEBRAL ARTERIES: Right Vertebral Artery: Normal. Left Vertebral Artery: Normal. OTHER FINDINGS: None. IMPRESSION: No evidence of hemodynamically significant stenosis in the internal carotid arteries. Less than 50 percent stenosis at the left internal carotid artery origin. Patent bilateral vertebral arteries. A preliminary report was provided by [employer] services.
[2017-03-23] MEDS: Lidocaine 5% Patch TD SCH (12:05)
--- NOTE | 2017-03-23 13:57 | PN ---
DATE: SUBJECTIVE: The patient denies any dizziness or headache. PHYSICAL EXAMINATION: VITAL SIGNS: Blood pressure 129/76, heart rate 62, temperature 97.7, respirations 18. HEENT: Normocephalic. CHEST: Clear. HEART: S1 and S2, regular. ABDOMEN: Soft. EXTREMITIES: Trace leg edema. DIAGNOSTIC DATA: Neck MRA revealed no evidence of hemodynamically significant stenosis in the internal carotid arteries. Patent bilateral vertebral arteries. Head MRA, normal MR angiogram of the . ASSESSMENT: 1. Recurrent dizziness. 2. Obesity. 3. Uncontrolled diabetes mellitus. 4. Hypertension. 5. Hyperlipidemia. RECOMMENDATIONS: Continue current aspirin, Levemir, Humalog, subcutaneous Lovenox, Neurontin, Norvasc, oral Protonix, and Singulair. The patient is currently followed with her primary computer scientist, Dr. Gely Valentine at his [place] office as scheduled. Salvador Agee MD
--- NOTE | 2017-03-23 18:51 | CON ---
DATE: ENDOCRINOLOGY CONSULTATION LOCATION: Room 401, Telemetry. HISTORY OF PRESENT ILLNESS: This is a 66-year-old female with known history of type 2 insulin-requiring diabetes, presenting here with sudden onset of dizziness and lightheadedness with generalized body weakness and has been admitted for further neurological workup and management and is also being referred now for diabetic evaluation and management. PAST MEDICAL HISTORY: History of type 2 insulin-requiring diabetes on a high dose basal and bolus insulin drug combination at home using Touje[employer] SoloStar pen at 50 units subcu at bedtime daily as ordered. She is also on Humalog given as 30 units before breakfast and lunch and 10 units before dinner as ordered. History of hypertension and dyslipidemia, history of chronic bronchial asthma, also history of dyslipidemia, on statin medication therapy as noted. The patient had a prior history of some kind of encephalitis and was admitted in the mid 90s to ICU for further workup and management and apparently improved accordingly as noted. FAMILY HISTORY: Positive for diabetes and hypertension. SOCIAL HISTORY: The patient has supportive family. No known substance use. REVIEW OF SYSTEMS: As mentioned above. Also admits to increasing hypersomnolence and lethargy as noted. She also admits to sudden onset of dizziness and lightheadedness, worse in the last few days prior to admission. PHYSICAL EXAMINATION: VITAL SIGNS: This is an average-built female in no apparent distress with a blood pressure of 140/80, pulse of 70 beats per minute regular, temperature 97, respirations 20, height is 5 feet 6 inches, weight is 200 pounds. HEENT: Head: Normocephalic. Eyes: Anicteric with pink conjunctivae. Funduscopy is not possible at this time. Ears, nose and throat: Otherwise normal. NECK: Supple. Thyroid gland is normal in size. No carotid bruits or cervical adenopathy. CARDIOPULMONARY: Some adynamic precordium. S1, S2 is rapid and regular. LUNGS: Clear to auscultation. ABDOMEN: Flat, soft with positive bowel sounds. EXTREMITIES: No peripheral edema. Pulses are +2 bilaterally. LABORATORY DATA: The chemistries shows a BUN of 19, sodium 142, potassium 4.2, chloride 103, CO2 of 29, glucose 258, and creatinine 0.9. Her glucose levels have ranged from 218 to 277 mg/dL. ASSESSMENT: This is a 66-year-old overweight female presenting here with sudden onset of dizziness and lightheadedness with precordial chest pain with the possibility always of a transient ischemic event versus subclinical cerebrovascular disease with a transient ischemic attack as mentioned versus an acute coronary syndrome especially in light of underlying cardiovascular risk factors has to be brought in and worked up at this time. PLAN: Plan of management as discussed with the patient and staff, we will modify once again her basal and bolus insulin regimen as she clearly has tremendous insulin resistance despite a hefty insulin dose requirement as noted thereof. So, higher insulin dose regimen will be needed to override insulin resistance thereof and we will optimize metabolic control as needed. We will increase the Humalog to 16 units a.c. dinner as ordered and to be started tonight as planned. We will also continue the Humalog given as 30 units subcu t.i.d. before breakfast and lunch as ordered. We will continue the insulin given as Levemir at 50 units subcu at bedtime daily as ordered. We will modify the coverage scale to obviate hypoglycemia and detailed orders have been given. We will also obtain a hemoglobin A1c to compare with her prior glycemic control and continue the vigorous IV hydration to replenish the lost fluids and electrolytes accordingly. We will follow with you. Savi Angel MD
[2017-03-23] MEDS: Insulin Detemir 100 Units/ml Inj SC SCH (21:39)
[2017-03-24] MEDS: Insulin Lispro (humaLOG) 100 Units/ml Inj SC SCH ×6 (06:30→17:10)
--- NOTE | 2017-03-24 07:16 | CP.PCM.DIS ---
Provider - Provider Date of Admission: 03/21/17 13:59 Attending physician: Zachery Sen MD Primary care physician: Hunter Forrester Consults: Dr. Agee-cardiology, Dr. Flores-neurology, Dr. Angel-endocrinology Time Spent in preparation of Discharge (in minutes): 30 Diagnosis - Discharge Diagnosis (1) Chest pain Status: Resolved Priority: Low (2) Dizziness Status: Resolved Priority: Low (3) Vertigo Status: Chronic Priority: Low Hospital Course - Lab Results Lab Results: Most Recent Lab Values WBC 11.7 K/uL (4.8-10.8) H 03/22/17 04:25 RBC 4.43 Mil/uL (3.80-5.20) 03/22/17 04:25 Hgb 13.0 g/dL (12.0-16.0) 03/22/17 04:25 Hct 39.6 % (34.0-47.0) 03/22/17 04:25 MCV 89.6 fl (81.0-99.0) 03/22/17 04:25 MCH 29.3 pg (27.0-31.0) 03/22/17 04:25 MCHC 32.7 g/dL (33.0-37.0) L 03/22/17 04:25 RDW 13.9 % (11.5-14.5) 03/22/17 04:25 Plt Count 151 K/uL (130-400) 03/22/17 04:25 MPV 11.3 fl (7.2-11.7) 03/20/17 11:10 Neut % (Auto) 67.2 % (50.0-75.0) 03/20/17 11:10 Lymph % (Auto) 25.9 % (20.0-40.0) 03/20/17 11:10 Cotton % (Auto) 4.8 % (0.0-10.0) 03/20/17 11:10 Eos % (Auto) 1.6 % (0.0-4.0) 03/20/17 11:10 Baso % (Auto) 0.5 % (0.0-2.0) 03/20/17 11:10 Neut # 8.5 K/uL (1.8-7.0) H 03/20/17 11:10 Lymph # 3.3 K/uL (1.0-4.3) 03/20/17 11:10 Cotton # 0.6 K/uL (0.0-0.8) 03/20/17 11:10 Eos # 0.2 K/uL (0.0-0.7) 03/20/17 11:10 Baso # 0.1 K/uL (0.0-0.2) 03/20/17 11:10 PT 10.9 Seconds (9.8-13.1) 03/20/17 11:10 INR 1.0 (0.9-1.2) 03/20/17 11:10 APTT 29.0 Seconds (25.6-37.1) 03/20/17 11:10 Sodium 142 mmol/l (132-148) 03/22/17 04:25 Potassium 4.2 MMOL/L (3.6-5.0) 03/22/17 04:25 Chloride 103 mmol/L (98-107) 03/22/17 04:25 Carbon Dioxide 29 mmol/L (22-30) 03/22/17 04:25 Anion Gap 14 (10-20) 03/22/17 04:25 BUN 19 mg/dl (7-17) H 03/22/17 04:25 Creatinine 0.9 mg/dl (0.7-1.2) 03/22/17 04:25 Est GFR ( Amer) > 60 03/22/17 04:25 Est GFR (Non-Af Amer) > 60 03/22/17 04:25 POC Glucose (mg/dL) 249 mg/dL (65-110) H 03/24/17 05:39 Random Glucose 258 mg/dL (65-105) H 03/22/17 04:25 Hemoglobin A1c 9.8 % (4.2-6.5) H 03/21/17 06:30 Calcium 9.5 mg/dL (8.4-10.2) 03/22/17 04:25 Total Bilirubin 0.3 mg/dl (0.2-1.3) 03/22/17 04:25 AST 14 U/L (14-36) D 03/22/17 04:25 ALT 29 U/L (9-52) 03/22/17 04:25 Alkaline Phosphatase 113 U/L (38-126) 03/22/17 04:25 Troponin I < 0.0120 ng/mL (0.00-0.120) 03/21/17 06:30 Total Protein 7.2 G/DL (6.3-8.2) 03/22/17 04:25 Albumin 3.8 g/dL (3.5-5.0) 03/22/17 04:25 Globulin 3.4 gm/dL (2.2-3.9) 03/22/17 04:25 Albumin/Globulin Ratio 1.1 (1.0-2.1) 03/22/17 04:25 Triglycerides 202 mg/DL (0-149) H 03/22/17 11:14 Cholesterol 162 mg/dL (0-199) 03/22/17 11:14 LDL Cholesterol Direct 83 mg/dL (0-129) 03/22/17 11:14 HDL Cholesterol 39 MG/DL (30-70) 03/22/17 11:14 Vitamin B12 356 pg/mL (239-931) 03/21/17 06:30 TSH 3rd Generation 1.69 mIU/ML (0.46-4.68) 03/20/17 20:30 - Hospital Course Hospital Course: 66 yr old F medically stable for discharge s/p admission for acute chest pain and dizziness likely secondary to benign paroxysmal positional vertigo. Patient was evaluated and cleared by cardiology and neurology. Insulin regimen was adjusted as patient has poorly controlled diabetes type 2. Patient improved and was discharged with instructions to follow up with her PMD Dr. Mathew within 1 week , with school bus driver/teacher assistant Dr. Angel within 2 weeks, with neurology Dr. Flores within 2 weeks and with her culinary arts instructor Dr. Valentine within 1 week. Also instructed to take medications as prescribed and ER precautions reviewed. - Date & Time of H&P Date of H&P: 03/21/17 Time of H&P: 07:02 Discharge Exam - Head Exam Head Exam: ATRAUMATIC, NORMOCEPHALIC - Eye Exam Eye Exam: EOMI - ENT Exam ENT Exam: Mucous Membranes Moist - Neck Exam Neck exam: Full Rom - Respiratory Exam Respiratory Exam: NORMAL BREATHING PATTERN - Cardiovascular Exam Cardiovascular Exam: REGULAR RHYTHM, +S1, +S2 - GI/Abdominal Exam GI & Abdominal Exam: Normal Bowel Sounds, Soft. absent: Tenderness - Extremities Exam Extremities exam: full ROM - Neurological Exam Neurological exam: Alert, CN II-XII Intact, Oriented x3 - Psychiatric Exam Psychiatric exam: Normal Affect, Normal Mood - Skin Skin Exam: Dry, Warm Discharge Plan - Discharge Medications Prescriptions: amLODIPine [Norvasc] 5 mg PO DAILY #30 tab Aspirin [Aspirin Chewable] 81 mg PO DAILY #30 chew Gabapentin [Neurontin] 100 mg PO BID #60 cap Insulin Glargine,Hum.rec.anlog [Toujeo Solostar] 60 unit SQ HS #1 insuln.pen Insulin Lispro [Humalog (Insulin Lispro)] 30 units SQ ACBL #1 vial Insulin Lispro [Humalog (Insulin Lispro)] 20 unit SQ ASDIR #1 vial Metoprolol Tartrate [Lopressor] 25 mg PO Q12 #60 tab Montelukast [Singulair] 5 mg PO DAILY #30 ctb Nitroglycerin [Nitrostat SL Tab] 0.3 mg SL PRN PRN #30 tab.subl PRN Reason: Pain, Mild (1-3) Pantoprazole [Protonix EC Tab] 40 mg PO DAILY #30 ect traZODone [Desyrel] 50 mg PO HS #30 tab - Follow Up Plan Condition: FAIR Disposition: HOME/ ROUTINE Instructions: Diabetes Mellitus Type 2 in Adults (DC), Benign Paroxysmal Positional Vertigo (DC) Additional Instructions: -Follow up with your PMD Dr. Mathew within 1 week -Follow up with school bus driver/teacher assistant Dr. Angel within 2 weeks -Follow up with neurology Dr. Flores within 2 weeks -Follow up with your culinary arts instructor Dr. Valentine within 1 week -Take medications as prescribed -ER precautions reviewed Referrals: Virgil Flores MD [Medical Doctor] - Gely Valentine MD [Staff Provider] - Hunter Mathew MD [Family Provider] - Clinical Quality Measures - Date & Time of Discharge Summary Date of Discharge Summary: 03/24/17 Time of Discharge Summary: 16:55
--- NOTE | 2017-03-24 07:29 | PQF GENQUE ---
Dr. Sen, Please provide the underlying diagnosis or posssible diagnoses causing the patient's documented symptom. If known after the work up is completed. Patient admitted with Chest Pain and dizziness. OR: Unable to determine Cardiology consult: Dxs. include:1. Dizziness and palpitation rule out paroxysmal atrial fibrillation or paroxysmal supraventricular tachycardia. 2. Hypertension. 3. Diabetes mellitus. 4. Hyperlipidemia. 5. Rule out transient ischemic attack---History of tachycardia, which could not be further defined by the patient or her daughter. Neurology consult: Vertigo : Considering the patient's history, it may be related to either benign positional vertigo, or could be due to vertebrobasilar insufficiency. Currently, she is back to baseline after Antivert and fluids. Endocrinology consult ---overweight, sudden onset of dizziness and lightheadedness with precordial chest pain with the possibility always of a transient ischemic event versus subclinical cerebrovascular disease with a transient ischemic attack as mentioned versus an acute coronary syndrome This form is a permanent part of the medical record Clarification of your documentation is requested to better reflect the severity of illness and intensity of treatment of your patient. Indicators present [] Specify: [] [] Specify: [] [] Specify: [] [] Specify: [] Location in the medical record that reflects the above clinical findings: [] Treatment Provided: [] PHYSICIAN'S RESPONSE Based on your medical judgment of the clinical indicators outlined above please clarify the following: [] Practitioner response [] If unable to determine, please check the box, sign and date. Present On Admission (POA) Indicator: [] Present at the time of admission [] Not present at the time of admission [] Clinically Undetermined In responding to this query, please exercise your independent professional judgment. The fact that a question is asked does not imply that any particular answer is desired or expected. Thank you for your clarification on this documentation. If you have any questions please call. * Thank you, Clarissa Tran RN ext. #[phone] MTDD
[2017-03-24] MEDS: Enoxaparin 40 mg Syringe SC SCH (09:33)
[2017-03-24] MEDS: Lidocaine 5% Patch TD SCH (09:35)
[2017-03-24] MEDS: Pantoprazole 40 mg EC Tab PO SCH (09:35)
--- NOTE | 2017-03-24 10:23 | CP.PCM.PN ---
Subjective - Date & Time of Evaluation Date of Evaluation: 03/24/17 Time of Evaluation: 10:21 - Subjective Subjective: Ms. Colin was seen and examined at the bedside. She is alert, oriented in all spheres. She denies any headache, dizziness, lightheadedness, weakness, unsteady gait, nausea, or vomiting. She states of experiencing pain in her right knee, currently with lidoderm patch on. She further states of feeling much better in comparison since admission. There was no untoward events overnight. Objective - Vital Signs/Intake and Output Vital Signs (last 24 hours): Temp Pulse Resp BP Pulse Ox 98.3 F 73 20 163/81 H 98 03/24/17 08:08 03/24/17 09:35 03/24/17 08:08 03/24/17 09:35 03/24/17 08:08 - Medications Medications: Current Medications Amlodipine Besylate (Norvasc) 5 mg PO DAILY [facility] Last Admin: 03/24/17 09:33 Dose: 5 mg Aspirin (Aspirin Chewable) 81 mg PO DAILY [facility] Last Admin: 03/24/17 09:35 Dose: 81 mg Enoxaparin Sodium (Lovenox) 40 mg SC DAILY [facility] PRN Reason: Protocol Last Admin: 03/24/17 09:33 Dose: 40 mg Gabapentin (Neurontin) 100 mg PO BID [facility] Last Admin: 03/24/17 09:33 Dose: 100 mg Insulin Detemir (Levemir) 50 units SC HS [facility] Last Admin: 03/23/17 21:39 Dose: 50 units Insulin Human Lispro (Humalog) 30 units SC ACB [facility] Last Admin: 03/24/17 08:05 Dose: 30 units Insulin Human Lispro (Humalog) 30 units SC ACL [facility] Last Admin: 03/23/17 12:04 Dose: 30 units Insulin Human Lispro (Humalog) 16 units SC ACD [facility] Last Admin: 03/23/17 17:15 Dose: 16 u Insulin Human Lispro (Humalog) 0 units SC ACHS [facility] PRN Reason: Protocol Last Admin: 03/24/17 06:30 Dose: Not Given Lidocaine (Lidoderm) 1 ea TD DAILY [facility] Last Admin: 03/24/17 09:35 Dose: 1 ea Metoprolol Tartrate (Lopressor) 25 mg PO Q12 [facility] Last Admin: 03/24/17 09:35 Dose: 25 mg Montelukast Sodium (Singulair) 5 mg PO DAILY [facility] Last Admin: 03/24/17 09:39 Dose: 5 mg Nitroglycerin (Nitrostat Sl Tab) 0.4 mg SL Q5M PRN PRN Reason: Pain, Mild (1-3) Pantoprazole Sodium (Protonix Ec Tab) 40 mg PO DAILY [facility] Last Admin: 03/24/17 09:35 Dose: 40 mg Trazodone HCl (Desyrel) 50 mg PO [facility] Last Admin: 03/23/17 21:38 Dose: 50 mg - Labs Labs: 03/22/17 04:25 03/22/17 04:25 PT 10.9 Seconds (9.8-13.1) 03/20/17 11:10 INR 1.0 (0.9-1.2) 03/20/17 11:10 APTT 29.0 Seconds (25.6-37.1) 03/20/17 11:10 - Constitutional Appears: No Acute Distress - Head Exam Head Exam: NORMAL INSPECTION - Neurological Exam Neurological Exam: Alert, Awake, Oriented x3 Neuro motor strength exam: Left Upper Extremity: 5, Right Upper Extremity: 5, Left Lower Extremity: 5, Right Lower Extremity: 5 Additional comments: Neurological unchanged from previous examination. Assessment and Plan (1) Vertigo Assessment & Plan: Case discussed with Dr. Flores, continue all current medical, physical therapies. To encourage patient to control blood sugar upon discharge. Status: Acute
--- NOTE | 2017-03-24 10:28 | CARD ---
APPROVED REPORT EXAM: Two-dimensional and M-mode echocardiogram with Doppler and color Doppler. Other Information Quality : FairRhythm : Echo Enhancing Agent Indication: Rule Out Septal Defect Agent/Amount Used: Agitated Saline <Conclusion> This was a very limited 2D echocardiogram showing only two apical 4 chamber images. Agitated saline bubble injections did not show any flow accross either ther interatrail septum or the interventricular septum.
--- NOTE | 2017-03-24 13:31 | PN ---
DATE: ENDOCRINOLOGY FOLLOWUP NOTE LOCATION: Room 401, bed 2. SUBJECTIVE: This is a 66-year-old female with recent uncontrolled type 2 insulin-requiring diabetes, now being followed closely for metabolic management. She presented here with marked hyperglycemic accelerations despite a very hefty insulin dose regimen as given on the outpatient and even inpatient as noted. Her glucose values overnight have ranged from 160 to 185 and 249 mg/dL. Her latest chemistry showed a BUN of 19, sodium 142, potassium 4.2, chloride 103, CO2 of 29, glucose 258, and creatinine 0.9. So, at this time, we will modify once again her basal and bolus insulin regimen and increase the basal insulin with Levemir to be given as 60 units subcu at bedtime daily to start tonight. We will also increase the Humalog at dinnertime to 20 units subcu a.c. dinner to start today as ordered. We will continue the Humalog given as 30 units before breakfast and before lunch as ordered. We will continue the low-dose correction scale using Humalog insulin to obviate hypoglycemia and detailed orders have been given. We will follow and advise accordingly. Savi Angel MD
[2017-03-24 15:48] VITALS: BP 146/75; PULSE 73; RESP 17; TEMP 98.5; O2SAT 95
--- NOTE | 2017-03-24 19:49 | PN ---
DATE: SUBJECTIVE: The patient denies any dizziness, palpitation, or chest pain. PHYSICAL EXAMINATION: VITAL SIGNS: Blood pressure 146/75, heart rate 73, temperature 98.5, and respirations 17. HEENT: Normocephalic. CHEST: Clear. HEART: S1 and S2, regular. EXTREMITIES: Trace leg edema. LABORATORY DATA: Today's blood sugars are 249 and 262. Echocardiography with bubble study did not show any flow across either the interatrial septum or interventricular septum. ASSESSMENT: 1. Recurrent dizziness. 2. Uncontrolled diabetes mellitus. 3. Hypertension and hyperlipidemia. 4. Obesity. RECOMMENDATIONS: Continue current aspirin 81 mg once a day, Humalog insulin and Levemir insulin. Continue subcutaneous Lovenox at 40 mg once a day, Neurontin 100 mg twice a day, Singulair 5 mg once a day, oral Protonix 40 mg once a day. The patient can be discharged from the cardiac point and follow up with her private vault teller Dr. Valentine at his [place] office. Salvador Agee MD
[2017-03-24] MEDS ORDERED: Insulin Detemir 100 Units/ml Inj SC SCH (22:00)
== END 2017-03-24 17:40 | disposition home health service (06) | DRG 149 ==
LOC: H.ER 10:08 → H.ERHOLD 13:59 → OBSVTOIN 13:59 → INTOOBSV 13:59 → H.TEL 16:44 → OBSVTOIN 03-21 13:59
PROVIDERS: ADMIT Internal Medicine; ATTEND Internal Medicine
DX: H81.10 Benign paroxysmal vertigo, unspecified ear (principal); E11.65 Type 2 diabetes mellitus with hyperglycemia; J45.20 Mild intermittent asthma, uncomplicated; I10 Essential (primary) hypertension; E78.5 Hyperlipidemia, unspecified; E66.01 Morbid (severe) obesity due to excess calories; J45.909 Unspecified asthma, uncomplicated; M25.561 Pain in right knee; Z68.32 Body mass index [BMI] 32.0-32.9, adult; Z79.4 Long term (current) use of insulin; Z86.61 Personal history of infections of the central nervous system